=== PATIENT | female | born 2000 | race Caucasian/White ===

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

== ENCOUNTER 2019-05-13 05:41 | Observation (INO) ==
[2019-05-13 06:11] LABS: Basophils # (auto) 0.03 K/uL (0-0.2); Basophils % (auto) 0.2 %; Eosinophils # (auto) 0.16 K/uL (0-0.5); Hematocrit (blood only) 39.9 % (37-47); Hemoglobin 13.9 g/dL (12.0-16.0); Immature Granulocytes # (auto) 0.04 K/uL (0.00-0.02); Immature Granulocytes % (auto) 0.3 %; Lymphocytes # (auto) 2.53 K/uL (1.2-3.4); Mean Corpuscular Hemoglobin 31.2 pg (25-34); Mean Corpuscular Hgb Conc 34.8 g/dL (32-36); Mean Corpuscular Volume 89.7 fL (80-100); Mean Platelet Volume 9.3 fL (7.4-10.4); Monocytes # (auto) 1.18 K/uL (0.11-0.59); Monocytes % (auto) 7.5 %; Neutrophils # (auto) 11.86 K/uL (1.4-6.5); Platelet Count 279 K/uL (130-400); RDW Coefficient of Variation 11.6 % (11.5-14.5); Red Blood Count 4.45 M/uL (4.2-5.4)
--- NOTE | 2019-05-13 06:21 | Emergency Department Note ---
Entered by Jacklyn Jacobs acting as a scribe for Danny Carroll DO History of Present Illness General Chief complaint: Abdominal Pain Stated complaint: SEVERE ABDOMINAL PAIN,NAUSEA Time Seen by Provider: 05/13/19 06:08 History of Present Illness Onset (ago): day(s) 6 Location: abdomen Pain Consistency: + other (worsening ) Maximum Pain Intensity: 8 Quality: + other (abdominal pain ) Exacerbated By: + movement Associated symptoms: + nausea/vomiting (-vomiting) and + other (-diarrhea); no fever/chills The patient is a 18-year-old female who presented to the emergency department for an evaluation of abdominal pain. The patient has been having ongoing nominal pain for approximately 5 to 6 days. She remembers awaking with the pain last week the pain is slowly become steadier and worsen. The pain is worsened with any movement. She has tried qdxa-tec-sxsvxfs medications without relief. The patient was seen at [facility]. Reportedly she was diagnosed with constipation and was instructed to try hcsp-lxs-[id number] stool softeners. She is been trying ncul-gfn-kjayetm MiraLAX as well as other stool softeners without relief. She states that she has had a bowel movement. She is had no vomiting. She describes no diarrhea but does complain of nausea. She does not complain of fever. She does complain of some back pain but it does not appear to be on her flank and she reports no worsening pain from her baseline. The patient has not been seen by a provider since the original evaluation of [facility]. The patient has no sick contacts that she is aware of. Home Medications Home Medications Medication Instructions Recorded Confirmed Type Control Pills 1 tab PO DAILY 05/13/19 05/13/19 History Allergies Allergy/AdvReac Type Severity Reaction Status Date / Time No Known Allergies Allergy Unverified 05/13/19 06:08 Past Med/Surg History Medical History No significant past medical history Surgical History No significant past surgical history Family History Other No significant family history Social History Preferred Language: Kosovan marital status: Single current occupational status: student Feels Safe at Home: Yes Smoking Status: Never smoker Hx Alcohol Use: No Hx Substance Use: No Review of Systems See HPI for pertinent positives & negatives. and A total of 10 systems reviewed and were otherwise negative Physical Exam Vital Signs Vital Signs - 24 hr 05/13/19 05:45 05/13/19 06:51 05/13/19 07:53 Temperature 36.8 C Temperature Source Oral Sepsis Recent Fever Within 48 Hours No Sepsis New/Unexplained Change in Mental Status No Sepsis Action Taken by Nursing No Action Required Pulse Rate 95 H Pulse Rate [Finger] 90 94 H Pulse Rhythm [Finger] Pulse Strength [Finger] Respiratory Rate 18 16 18 Respiratory Effort / Characteristics Non-Labored Spontaneous Non-Labored Spontaneous Respiratory Depth Normal Normal Respiratory Pattern Blood Pressure 127/84 Blood Pressure [Left Arm] 100/65 105/77 Blood Pressure Mean 98 Blood Pressure Mean [Left Arm] 76 86 Blood Pressure Position [Left Arm] Pulse Oximetry 99 100 100 Oxygen Delivery Method Room Air Room Air 05/13/19 08:43 05/13/19 09:03 Temperature 36.4 C L Temperature Source Oral Sepsis Recent Fever Within 48 Hours Sepsis New/Unexplained Change in Mental Status Sepsis Action Taken by Nursing Pulse Rate 88 Pulse Rate [Finger] 96 H Pulse Rhythm [Finger] Regular Pulse Strength [Finger] Normal Respiratory Rate 18 20 Respiratory Effort / Characteristics Non-Labored Spontaneous Respiratory Depth Normal Respiratory Pattern Regular Blood Pressure 111/72 Blood Pressure [Left Arm] 119/84 Blood Pressure Mean Blood Pressure Mean [Left Arm] 95 Blood Pressure Position [Left Arm] Sitting Pulse Oximetry 100 100 Oxygen Delivery Method Room Air GENERAL: Patient is awake alert in no acute distress patient is resting comfortably and showing no signs of anxiety EYES: The conjunctivae are clear. The pupils are round and reactive. EARS, NOSE, MOUTH AND THROAT: The nose is without any evidence of any deformity. Mucous membranes are moist tongue is midline NECK: The neck is nontender and supple. RESPIRATORY: Normal respiratory effort is noted there is no evidence of wheezing rhonchi or rales CARDIOVASCULAR: Regular rate and rhythm noted there no murmurs rubs or gallops normal S1 normal S2 GASTROINTESTINAL: The abdomen is mildly distended but soft. There is tenderness in the right lower quadrant. Mild guarding is noted in the right lower quadrant as well as the suprapubic region. BACK: No midline tenderness or or step-off noted range of motion in flexion extension as well as rotation no signs of muscle spasm noted MUSCULOSKELETAL/EXTREMITIES: There is no evidence of gross deformity full range of motion is noted in the hips and shoulders SKIN: There is no obvious evidence of any rash. There are no petechiae, pallor or cyanosis noted. NEUROLOGIC: Patient is awake alert and oriented x3 strength is symmetric patellar reflexes are 2+ bilaterally Course 0615: Past medical records reviewed. The patient was evaluated in room B6. A complete history and physical exam was performed. 0705: I reevaluated and updated the patient on her case. 0708: I discussed the patient's case with Dr. Guillermo-Surgery. Dr. Guillermo recommends ultrasound to the right lower quadrant of the patient, and Dr. Guillermo states he will evaluate the patient, as well 0820: I discussed the patient's case with Emmanuelle Hall. The patient will be taken to the OR. . Consultations Consultation #1: I discussed the patient's case with Dr. Guillermo-Surgery. Dr. Guillermo recommends ultrasound to the right lower quadrant of the patient, and Dr. Guillermo states he will evaluate the patient, as well. Time: 07:08 Consultation #2: I discussed the patient's case with Emmanuelle aHll. The patient will be taken to the OR. Time: 08:20 Administered Medications Ioversol (Optiray 320 100ml) 93 ml IV ONCE PRN PRN Reason: Interaction Checking Stop: 05/17/19 06:40 Last Admin: 05/13/19 06:42 Dose: 93 ml Documented by: [id number] Discontinued Medications Sodium Chloride (Nss 1000ml) 1,000 mls @ 999 mls/hr IV .Q1H1M ONE Stop: 05/13/19 07:35 Last Infusion: 05/13/19 07:52 Dose: 0 mls/hr Documented by: [id number] Admin: 05/13/19 06:51 Dose: 999 mls/hr Documented by: [id number] Sodium Chloride (Nss 1000ml) 1,000 mls @ 999 mls/hr IV .Q1H1M ONE Stop: 05/13/19 09:07 Last Admin: 05/13/19 08:31 Dose: 999 mls/hr Documented by: [id number] Cefoxitin Sodium (Mefoxin) 1,000 mg in 50 mls @ 100 mls/hr IV NOW STA Stop: 05/13/19 08:36 Last Admin: 05/13/19 08:31 Dose: 100 mls/hr Documented by: [id number] Medical Decision Making Differential Diagnosis Etiologies such as appendicitis, diverticulitis, obstruction, inflammatory bowel disease, renal colic, PUD, biliary pathology, pancreatitis, mesenteric ischemia, aortic pathology, infections, genitourinary, UTI, perforated viscus, as well as others were entertained. Medical Records Attestation: I reviewed the patient's medical records. Home Medications Current Medication List: was personally reviewed by me Laboratory Data Attestation: I reviewed the patient's lab results. Result diagrams: 05/13/19 05:59 05/13/19 05:59 Lab Results 05/13/19 05/13/19 05/13/19 Range/Units 05:45 05:45 05:59 WBC 15.80 H (4.8-10.8) K/uL RBC 4.45 (4.2-5.4) M/uL Hgb 13.9 (12.0-16.0) g/dL Hct 39.9 (37-47) % MCV 89.7 (80-100) fL MCH 31.2 (25-34) pg MCHC 34.8 (32-36) g/dL RDW Std Deviation 38.0 (36.4-46.3) fL RDW Coeff of Snow 11.6 (11.5-14.5) % Plt Count 279 (130-400) K/uL MPV 9.3 (7.4-10.4) fL Immature Gran % (Auto) 0.3 % Neut % (Auto) 75.0 % Lymph % (Auto) 16.0 % Robertson % (Auto) 7.5 % Eos % (Auto) 1.0 % Baso % (Auto) 0.2 % Immature Gran # (Auto) 0.04 H (0.00-0.02) K/uL Neut # (Auto) 11.86 H (1.4-6.5) K/uL Lymph # (Auto) 2.53 (1.2-3.4) K/uL Robertson # (Auto) 1.18 H (0.11-0.59) K/uL Eos # (Auto) 0.16 (0-0.5) K/uL Baso # (Auto) 0.03 (0-0.2) K/uL Sodium (136-145) mmol/L Potassium (3.5-5.1) mmol/L Chloride (98-107) mmol/L Carbon Dioxide (21-32) mmol/L Anion Gap (3-11) BUN (7-18) mg/dl Creatinine (0.6-1.2) mg/dl Est Cr Clr Drug Dosing ml/min Est GFR ( Amer) Est GFR (Non-Af Amer) BUN/Creatinine Ratio (10-20) Glucose (70-99) mg/dl Calcium (8.5-10.1) mg/dl Total Bilirubin (0.2-1) mg/dl AST (15-37) U/L ALT (12-78) U/L Alkaline Phosphatase (45-117) U/L Total Protein (6.4-8.2) gm/dl Albumin (3.4-5.0) gm/dl Globulin (2.5-4.0) gm/dl Albumin/Globulin Ratio (0.9-2) Lipase (73-393) U/L Urine Color Yellow Urine Appearance Clear (Clear) Urine pH 6.0 (4.5-7.5) Ur Specific [place] 1.021 (1.000-1.030) Urine Protein Negative (Negative) Urine Glucose (UA) Negative (Negative) Urine Ketones Negative (Negative) Urine Blood Trace H (Negative) Urine Nitrite Negative (Negative) Urine Bilirubin Negative (Negative) Urine Urobilinogen Negative (Negative) Ur Leukocyte Esterase Negative (Negative) Urine WBC (Auto) 1-5 (0-5) /hpf Urine RBC (Auto) 0-4 (0-4) /hpf U Hyaline Cast (Auto) 0 (0-5) /lpf U Epithel Cells (Auto) >30 H (0-5) /lpf Urine Bacteria (Auto) Negative (Negative) POC Ur Test NEG (NEG) 05/13/19 Range/Units 05:59 WBC (4.8-10.8) K/uL RBC (4.2-5.4) M/uL Hgb (12.0-16.0) g/dL Hct (37-47) % MCV (80-100) fL MCH (25-34) pg MCHC (32-36) g/dL RDW Std Deviation (36.4-46.3) fL RDW Coeff of Snow (11.5-14.5) % Plt Count (130-400) K/uL MPV (7.4-10.4) fL Immature Gran % (Auto) % Neut % (Auto) % Lymph % (Auto) % Robertson % (Auto) % Eos % (Auto) % Baso % (Auto) % Immature Gran # (Auto) (0.00-0.02) K/uL Neut # (Auto) (1.4-6.5) K/uL Lymph # (Auto) (1.2-3.4) K/uL Robertson # (Auto) (0.11-0.59) K/uL Eos # (Auto) (0-0.5) K/uL Baso # (Auto) (0-0.2) K/uL Sodium 137 (136-145) mmol/L Potassium 3.6 (3.5-5.1) mmol/L Chloride 102 (98-107) mmol/L Carbon Dioxide 28 (21-32) mmol/L Anion Gap 7.0 (3-11) BUN 11 (7-18) mg/dl Creatinine 0.85 (0.6-1.2) mg/dl Est Cr Clr Drug Dosing 95.0 ml/min Est GFR ( Amer) 114.3 Est GFR (Non-Af Amer) 98.6 BUN/Creatinine Ratio 13.3 (10-20) Glucose 99 (70-99) mg/dl Calcium 9.5 (8.5-10.1) mg/dl Total Bilirubin 0.5 (0.2-1) mg/dl AST 15 (15-37) U/L ALT 19 (12-78) U/L Alkaline Phosphatase 62 (45-117) U/L Total Protein 8.0 (6.4-8.2) gm/dl Albumin 4.0 (3.4-5.0) gm/dl Globulin 4.0 (2.5-4.0) gm/dl Albumin/Globulin Ratio 1.0 (0.9-2) Lipase 148 (73-393) U/L Urine Color Urine Appearance (Clear) Urine pH (4.5-7.5) Ur Specific [place] (1.000-1.030) Urine Protein (Negative) Urine Glucose (UA) (Negative) Urine Ketones (Negative) Urine Blood (Negative) Urine Nitrite (Negative) Urine Bilirubin (Negative) Urine Urobilinogen (Negative) Ur Leukocyte Esterase (Negative) Urine WBC (Auto) (0-5) /hpf Urine RBC (Auto) (0-4) /hpf U Hyaline Cast (Auto) (0-5) /lpf U Epithel Cells (Auto) (0-5) /lpf Urine Bacteria (Auto) (Negative) POC Ur Test (NEG) Imaging Data Radiologist's Impression: Radiology results as stated below per my review and the radiologist's interpretation: CT abd pelvis IV con only CLINICAL HISTORY: RLQ pain COMPARISON STUDY: None. TECHNIQUE: The patient was scanned in a dynamic helical fashion during intravenous administration of 93 cc of Optiray 320. A dose lowering technique was utilized adhering to the principles of ALARA. CT DOSE: 313.01 mGycm FINDINGS: Lower chest: There are minor right basilar atelectatic changes Liver: The contrast-enhanced liver is normal in size, contour, and attenuation. There is no intrahepatic biliary ductal dilatation. The hepatic veins and portal veins are patent. Gallbladder: Unremarkable. Spleen: Normal in size and attenuation. Pancreas: Unremarkable. Adrenal glands: Unremarkable. Kidneys: There is symmetric renal cortical enhancement. The kidneys are normal in size without hydronephrosis. Bowel: There are no transition zones to indicate bowel obstruction. There is no evidence of acute diverticulitis. There is a low-lying cecum. There is a mildly dilated fluid-filled appendix versus distal ileal bowel loop. Differentiation is is difficult on this study performed without the benefit of oral contrast. If there is clinical concern over the presence of acute appendicitis. This examination should be repeated with both intravenous and oral contrast. Peritoneum: There is no intraperitoneal free air or abdominal ascites. Vasculature: The abdominal aorta is normal in course and caliber. Adenopathy: None. Pelvic viscera: There is an indwelling vaginal ring. Skeletal structures: No destructive osseous lesions are seen. IMPRESSION: 1. No evidence of bowel obstruction. No evidence of free air 2. Mildly dilated fluid-filled appendix versus distal ileal bowel loop. If there is clinical concern over the presence of acute appendicitis, this examination should be repeated with both intravenous and oral contrast. Electronically signed by: Vargas Jurado M.D. 05/13/2019 6:59 AM US appendix CLINICAL HISTORY: Right lower quadrant abdominal pain COMPARISON STUDY: CT scan dated 05/13/2019 FINDINGS: The appendix was not visualized. The study is therefore nondiagnostic in regards to acute appendicitis. There is minimal free pelvic fluid in the right lower quadrant. Unremarkable right lower quadrant lymph node was delinea valerio IMPRESSION: Nonvisualization of the appendix. This study is therefore nondiagnostic in regards to acute appendicitis Electronically signed by: Vargas Jurado M.D. 05/13/2019 7:55 AM Blood Pressure Blood Pressure Findings: Normal blood pressure MDM Narrative The patient is a 18-year-old female who presented to the emergency department for an evaluation of abdominal pain. The patient appeared to have abdominal pain which was ongoing for the last few days. Pain continues to worsen. She was seen initially at an urgent care center and was felt to be suffering from constipation. She was taking nzzq-cpr-tbpzaod medication for pain as well as constipation without relief of her symptoms. The patient's physical exam appears to be consistent with appendicitis. She also has an elevated white blood cell count. CT the abdomen and pelvis was obtained and did show signs of possible dilated appendix. It was not completely clear so surgical consultation was undertaken. I discussed this case with the on-call general surgeon. They did recommend an ultrasound but the ultrasound was nonconclusive. Given the patient's presentation she was evaluated by the general surgical group. She was felt to have consistent pain in his story which was worrisome for appendicitis so the best course of action was felt to be an appendectomy. The patient was treated with IV fluids and IV antibiotics. She was reevaluated multiple times. On subsequent reevaluation she was minimally improved. The patient was agreeable to the plan. Impression & Plan Acute appendicitis, Abdominal pain, right lower quadrant Discharge Plan Visit Data *Final* Discharge Date/Time: 05/13/19 08:43 Chief Complaint: Abdominal Pain Stated Complaint: SEVERE ABDOMINAL PAIN,NAUSEA ED Provider: Danny Carroll Discharge Problem: Acute appendicitis, Abdominal pain, right lower quadrant Patient Disposition: Still a Patient Discharge Instructions Interventions: ED Discharge Assessment Last Done: 05/13/19 08:43 Discharge Problem: Acute appendicitis Qualifiers: Acute appendicitis type: unspecified acute appendicitis type Qualified Code(s): K35.80 - Unspecified acute appendicitis The scribe's documentation has been prepared under my direction and personally reviewed by me in its entirety. I confirm that the note above accurately reflects all work, treatment, procedures, and medical decision making performed by me.
[2019-05-13 06:26] LABS: BUN Creatinine Ratio 13.3 (10-20); Calcium 9.5 mg/dl (8.5-10.1); Est GFR (African American) 114.3; Est GFR (Non-African American) 98.6; Potassium 3.6 mmol/L (3.5-5.1)
[2019-05-13 06:28] LABS: Appearance Urine Clear (Clear); Bacteria Urine Automated Negative (Negative); Bilirubin Urine Negative (Negative); Blood Urine Trace (Negative); Cast Urine Automated 0 /lpf (0-5); Color Urine Yellow; Epithelial Cell Urine Auto >30 /lpf (0-5); Glucose Urine UA Negative (Negative); Ketones Urine Negative (Negative); Leukocyte Esterase Urine Negative (Negative); Nitrite Urine Negative (Negative); Protein Urine Negative (Negative); RBC Urine Automated 0-4 /hpf (0-4); Specific Gravity Urine 1.021 (1.000-1.030); Urobilinogen Urine Negative (Negative)
[2019-05-13 06:29] LABS: Bilirubin,Total 0.5 mg/dl (0.2-1)
[2019-05-13] MEDS ORDERED: SODIUM CHLORIDE 0.9% 1000ML 1,000 ML IV ONE ×2 (06:35→08:07)
[2019-05-13] MEDS ORDERED: IOVERSOL 100ml IV PRN (06:41)
--- NOTE | 2019-05-13 07:00 | CT Scan Report ---
CT abd pelvis IV con only CLINICAL HISTORY: RLQ pain COMPARISON STUDY: None. TECHNIQUE: The patient was scanned in a dynamic helical fashion during intravenous administration of 93 cc of Optiray 320. A dose lowering technique was utilized adhering to the principles of ALARA. CT DOSE: 313.01 mGycm FINDINGS: Lower chest: There are minor right basilar atelectatic changes Liver: The contrast-enhanced liver is normal in size, contour, and attenuation. There is no intrahepa tic biliary ductal dilatation. The hepatic veins and portal veins are patent. Gallbladder: Unremarkable. Spleen: Normal in size and attenuation. Pancreas: Unremarkable. Adrenal glands: Unremarkable. Kidneys: There is symmetric renal cortical enhancement. The kidneys are normal in size without hydron ephrosis. Bowel: There are no transition zones to indicate bowel obstruction. There is no evidence of acute div erticulitis. There is a low-lying cecum. There is a mildly dilated fluid-filled appendix versus dista l ileal bowel loop. Differentiation is is difficult on this study performed without the benefit of or al contrast. If there is clinical concern over the presence of acute appendicitis. This examination s hould be repeated with both intravenous and oral contrast. Peritoneum: There is no intraperitoneal free air or abdominal ascites. Vasculature: The abdominal aorta is normal in course and caliber. Adenopathy: None. Pelvic viscera: There is an indwelling vaginal ring. Skeletal structures: No destructive osseous lesions are seen. IMPRESSION: 1. No evidence of bowel obstruction. No evidence of free air 2. Mildly dilated fluid-filled appendix versus distal ileal bowel loop. If there is clinical concern over the presence of acute appendicitis, this examination should be repeated with both intravenous an d oral contrast. Electronically signed by: Vargas Jurado M.D. 05/13/2019 6:59 AM
--- NOTE | 2019-05-13 07:53 | History & Physical Report ---
Date of Service May 13, 2019 Assessment & Plan (1) Acute appendicitis: This is a 18y F with a history of IBS who presents to the [facility] ED on 05/13/19 with complaints of severe lower abdominal pain + nausea. Workup in the ED revealed a WBC of [address] scan findings equivocal for acute appendicitis. On exam patient is tender in the lower abdomen, worse on the right side. After discussion with patient and Dr. Guillermo we will plan to proceed with surgical intervention and book patient for a laparoscopic appendectomy. Plan to keep patient NPO with IVF and start IV abx. We will talk to the OR schedulers and plan to take her this AM. as above. exam c/w appendicitis. discussed options/risks ( bleeding/infection/dvt/pe/leaks/injury to another organ/etc...) questions answered. will proceed with gilbert appshaye/jaison jessica. History of Present Illness Primary Care Provider: NO PCP This is a 18y F with a PMH of IBS who presents to the [facility] ED on 05/13/19 with complaints of abdominal pain starting this AM. Patient reports that she initially had an episode of abdominal pain and nausea this past Saturday prompting her to be evaluated at an urgent care where they took an x-ray and diagnosed her with constipation. She then took Miralax for 5 days thereafter and was having regular bowel movements and her pain went away. Then this AM she developed severe pain again to the point where she couldn't sleep and came to the ER. She describes the pain as 8/10 in severity, located in the lower abdomen, but worse stabbing-like pains on the right. She says it "feels like there is a poison in my stomach." Patient endorses some chills and hot flashes, and denies emesis, diarrhea, chest pain, shortness of breath. She last ate yesterday at 9pm and her last bowel movement was yesterday. In the ED patient's WBC elevated to [address] a/p revealed a mildly dilated fluid filled appendix vs distal ileal bowel loop, with signs concerning for acute appendicitis. A pelvis US was obtained thereafter showing nonvisualization of the appendix. Surgery was consulted thereafter for further evaluation. Allergies Allergy/AdvReac Type Severity Reaction Status Date / Time No Known Allergies Allergy Unverified 05/13/19 06:08 Home Medications Home Medications Medication Instructions Recorded Confirmed Type Control Pills 1 tab PO DAILY 05/13/19 05/13/19 History Past Med/Surg History Medical History No significant past medical history Surgical History No significant past surgical history Family History Other No significant family history Social History Preferred Language: Amharic marital status: Single current occupational status: student Feels Safe at Home: Yes Smoking Status: Never smoker Hx Alcohol Use: No Hx Substance Use: No Review of Systems Constitutional: + chills hot flashes Respiratory: no shortness of breath Cardiovascular: no chest pain Gastrointestinal: + abdominal pain (lower abdominal region, worse on the right side) and + nausea; no vomiting Genitourinary: no dysuria and no difficulty urinating Physical Exam Physical Exam: awake/alert Constitutional: well developed and well nourished; no acute distress Respiratory: normal respiratory effort; no respiratory distress Cardiovascular: Rate/Rhythm: regular rate Gastrointestinal (Abdomen): Inspection/Auscultation: abdomen not distended Percussion/Palpation: + abdomen tender (in lower abdomen, pain worse to palpation on the right) and abdomen soft Results & Data Vital Signs (Past 12 Hours) Vital Signs Temp Pulse Pulse Resp BP BP Pulse Ox 05/13/19 06:51 90 16 100/65 100 05/13/19 05:45 36.8 C 95 H 18 127/[address] abd pelvis IV con only CLINICAL HISTORY: RLQ pain COMPARISON STUDY: None. TECHNIQUE: The patient was scanned in a dynamic helical fashion during intravenous administration of 93 cc of Optiray 320. A dose lowering technique was utilized adhering to the principles of ALARA. CT DOSE: 313.01 mGycm FINDINGS: Lower chest: There are minor right basilar atelectatic changes Liver: The contrast-enhanced liver is normal in size, contour, and attenuation. There is no intrahepatic biliary ductal dilatation. The hepatic veins and portal veins are patent. Gallbladder: Unremarkable. Spleen: Normal in size and attenuation. Pancreas: Unremarkable. Adrenal glands: Unremarkable. Kidneys: There is symmetric renal cortical enhancement. The kidneys are normal in size without hydronephrosis. Bowel: There are no transition zones to indicate bowel obstruction. There is no evidence of acute diverticulitis. There is a low-lying cecum. There is a mildly dilated fluid-filled appendix versus distal ileal bowel loop. Differentiation is is difficult on this study performed without the benefit of oral contrast. If there is clinical concern over the presence of acute appendicitis. This examination should be repeated with both intravenous and oral contrast. Peritoneum: There is no intraperitoneal free air or abdominal ascites. Vasculature: The abdominal aorta is normal in course and caliber. Adenopathy: None. Pelvic viscera: There is an indwelling vaginal ring. Skeletal structures: No destructive osseous lesions are seen. IMPRESSION: 1. No evidence of bowel obstruction. No evidence of free air 2. Mildly dilated fluid-filled appendix versus distal ileal bowel loop. If there is clinical concern over the presence of acute appendicitis, this examination should be repeated with both intravenous and oral contrast. Electronically signed by: Vargas Jurado M.D. 05/13/2019 6:59 AM US appendix CLINICAL HISTORY: Right lower quadrant abdominal pain COMPARISON STUDY: CT scan dated 05/13/2019 FINDINGS: The appendix was not visualized. The study is therefore nondiagnostic in regards to acute appendicitis. There is minimal free pelvic fluid in the right lower quadrant. Unremarkable right lower quadrant lymph node was delineated IMPRESSION: Nonvisualization of the appendix. This study is therefore nondiagnostic in regards to acute appendicitis Electronically signed by: Vargas Jurado M.D. 05/13/2019 7:55 AM Dictated: 05/13/19 0754 Transcribed: 05/13/19 0754 PG Care Time/CCT Total # of Minutes Spent Total Time Spent with Patient: Total time spent is greater than 50% in coordination of care (as documented) at patient's floor/unit and/or counseling patient:
--- NOTE | 2019-05-13 07:56 | Ultrasound Report ---
US appendix CLINICAL HISTORY: Right lower quadrant abdominal pain COMPARISON STUDY: CT scan dated 05/13/2019 FINDINGS: The appendix was not visualized. The study is therefore nondiagnostic in regards to acute a ppendicitis. There is minimal free pelvic fluid in the right lower quadrant. Unremarkable right lower quadrant lymph node was delineated IMPRESSION: Nonvisualization of the appendix. This study is therefore nondiagnostic in regards to ac [place] appendicitis Electronically signed by: Vargas Jurado M.D. 05/13/2019 7:55 AM
[2019-05-13] MEDS ORDERED: cefOXitin 1,000 MG/50 ML BAG IV STA (08:07)
[2019-05-13] MEDS ORDERED: MIDAZOLAM HCL 1 MG/ML 2ML VIAL ONE (09:08)
[2019-05-13] MEDS ORDERED: fentaNYL citrate 100 MCG/2 ML VIAL ONE (09:08)
[2019-05-13] MEDS ORDERED: BUPIVACAINE/EPINEPHRINE 0.5% MPF 1:200,000 30 ML VIAL ONE (09:13)
--- NOTE | 2019-05-13 09:55 | Anesthesiology Consultation ---
Date of Service May 13, 2019 Assessment & Plan (1) Encounter for pre-operative examination: Chart Review Chart Review: Acceptable Risk for Surgery History Surgery Operation Date: 05/13/19 08:10 Proposed Procedures p Laparoscopic Appendectomy - Daren Guillermo, Height/Weight Height: 5 ft 5 in Weight: 64.6 kg Allergies Allergy/AdvReac Type Severity Reaction Status Date / Time No Known Allergies Allergy Unverified 05/13/19 06:08 Medications Home Medications Medication Instructions Recorded Confirmed Last Taken Control Pills 1 tab PO DAILY 05/13/19 05/13/19 Unknown Active Medications Generic Name Dose Route Start Last Admin Trade Name Freq PRN Reason Stop Dose Admin Ioversol 93 ml 05/13/19 06:41 05/13/19 06:42 Optiray 320 100ml IV 05/17/19 06:40 93 ml ONCE PRN Administration Interaction Checking NPO Date Last Intake of Fluids: 05/13/19 Time Last Intake of Fluids: 04:00 Date Last Intake of Solids: 05/12/19 Time Last Intake of Solids: 21:00 Past Medical History Medical History No significant past medical history Past Family History Family History Other No significant family history Past Surgical History Surgical History No significant past surgical history Social History Smoking Status: Never smoker Hx Alcohol Use: No Hx Substance Use: No Physical Exam Vital Signs Last Vital Signs Temp 36.4 C L 05/13/19 09:03 Pulse 96 H 05/13/19 09:03 Resp 20 05/13/19 09:03 BP 119/84 05/13/19 09:03 Pulse Ox 100 05/13/19 09:03 Testing Laboratory Results 05/13/19 05:59 05/13/19 05:59 Urine Color Yellow 05/13/19 05:45 Urine Appearance Clear (Clear) 05/13/19 05:45 Urine pH 6.0 (4.5-7.5) 05/13/19 05:45 Ur Specific [place] 1.021 (1.000-1.030) 05/13/19 05:45 Urine Protein Negative (Negative) 05/13/19 05:45 Urine Glucose (UA) Negative (Negative) 05/13/19 05:45 Urine Ketones Negative (Negative) 05/13/19 05:45 Urine Nitrite Negative (Negative) 05/13/19 05:45 Ur Leukocyte Esterase Negative (Negative) 05/13/19 05:45 Urine WBC (Auto) 1-5 /hpf (0-5) 05/13/19 05:45 Urine RBC (Auto) 0-4 /hpf (0-4) 05/13/19 05:45 U Hyaline Cast (Auto) 0 /lpf (0-5) 05/13/19 05:45 U Epithel Cells (Auto) >30 /lpf (0-5) H 05/13/19 05:45 Urine Bacteria (Auto) Negative (Negative) 05/13/19 05:45 05/13/19 05:45 POC Ur Test NEG
[2019-05-13] MEDS ORDERED: NEOSTIGMINE METHYLSULFATE 5 MG/5 ML SYR ONE (10:28)
[2019-05-13] MEDS ORDERED: LIDOCAINE HCL 2% 2 ML VIAL/AMP(20MG/ML) INFIL ONE (10:28)
[2019-05-13] MEDS ORDERED: GLYCOPYRROLATE 0.2 MG/ML VIAL ONE (10:28)
[2019-05-13] MEDS ORDERED: CEFAZOLIN 250 MG/ML 1 GM VIAL ONE (10:28)
[2019-05-13] MEDS ORDERED: ONDANSETRON INJ 2 MG/ML 2 ML VIAL ONE (10:28)
[2019-05-13] MEDS ORDERED: DEXAMETHASONE SOD INJ 4 MG/ML VIAL ONE (10:28)
[2019-05-13] MEDS ORDERED: PROPOFOL IV EMULSION 10 MG/ML 20 ML VIAL IV ONE (10:28)
[2019-05-13] MEDS ORDERED: KETOROLAC 30 MG/ML VIAL ONE (10:48)
[2019-05-13] MEDS ORDERED: ROCURONIUM BROMIDE 10 MG/ML 5 ML VIAL ONE (10:49)
--- NOTE | 2019-05-13 11:06 | Operative Report ---
PG Post Operative Report Pre & Post Diagnosis Operation Date: 05/13/19 08:10 Pre-Op Diagnosis: Acute Appendicitis Post-Op Diagnosis: Acute Appendicitis Procedure Operation Date: 05/13/19 08:10 Actual Procedures p Laparoscopic Appendectomy(Not Applicable) - Daren Guillermo DO Surgeon Daren Guillermo DO Acetaldehyde Converter Operator haven Andrade Estimated Blood Loss 5 Findings Consistent with Post-Op Diagnosis Specimens appendix Description of Procedure After informed consent was obtained the patient was taken to the operating room and placed in supine position. After successful intubation a Villalba catheter was placed and the left arm was tucked. I began by making a periumbilical incision with an 11 blade scalpel and carried this down through the soft tissue using electrocautery. The anterior rectus fascia was opened using electrocautery and 2 #0 Vicryl stay sutures were placed. The peritoneum was elevated using hemostats and incised under direct vision using a Metzenbaum scissor. A finger sweep was performed. A 12 mm Frederick trocar was placed and the abdomen was insufflated to 18 mmHg. A laparoscope was inserted and the abdomen was examined in 360. A suprapubic 5 mm port and a left lower quadrant 12 mm port were placed under direct vision. The patient was air planed to the left as well as placed in a slight Trendelenburg position. We began by looking in the right lower quadrant. We were able to readily identify the appendix and it was grossly inflamed. It had not perforated. There is a small amount of purulent fluid in the right lower quadrant and the pelvis. We immediately irrigated and suctioned this out. I was able to use primarily blunt dissection to pull the appendix away from the right lower quadrant sidewall. I was able to make a window in the mesentery of the appendix. I used a ELIZ brown 60 mm stapler to transect it at its base. I then used a second brown ELIZ stapler to transect the mesentery. The appendix was then placed into an Endo Catch bag and removed from the camera port site. We thoroughly irrigated the right lower quadrant as well as the pelvis. There was adequate hemostasis. I ran the small bowel backwards from the terminal ileum for about 6 feet all of which was normal. All the peritoneal surfaces were normal. Small/ large bowel, liver, stomach etc. all appeared grossly normal. We did a final irrigation and then removed all the trochars and desufflated the abdomen. The fascia of the camera port as well as the left lower quadrant were closed using 0 Vicryl in [id number] fashion. Wounds were all irrigated and closed using 4-0 Monocryl. Marcaine was injected around them for postoperative analgesia and skin glue used as a dressing. The patient was awakened extubated and transferred to recovery in stable condition. My physician's personal assistant was present through the entire case. She assisted with prepping the patient and helped with exposure for port placement, helped run the camera and helped with fascial/wound closure at the end of the procedure as well as dressing placement. I attest to the content of the Intraoperative Record and any orders documented therein. Any exceptions are noted below. I attest to the content of the Intraoperative Record and any orders documented therein. Any exceptions are noted below.
[2019-05-13] MEDS ORDERED: HYDROmorphone INJ 1 MG/ML SYRINGE ONE (11:14)
[2019-05-13] MEDS ORDERED: PROMETHAZINE HCL 6.25 MG in SODIUM CHLORIDE 0.9% 50 ML IV STA (11:19)
[2019-05-13] MEDS ORDERED: ATROPINE SULFATE 0.1 MG/ML 10ML SYR IV PRN (11:20)
[2019-05-13] MEDS ORDERED: ONDANSETRON INJ 2 MG/ML 2 ML VIAL IV PRN ×2 (11:20→12:58)
[2019-05-13] MEDS ORDERED: PROMETHAZINE HCL 6.25 MG in SODIUM CHLORIDE 0.9% 50 ML IV PRN (11:20)
[2019-05-13] MEDS: HYDROmorphone INJ 1 MG/ML SYRINGE IV PRN ×4 (11:22→11:45)
--- NOTE | 2019-05-13 11:41 | Anesthesiology Progress Note ---
Date of Service May 13, 2019 Anesthesia Post Procedure Vital Signs Vital Signs: Temp Pulse Pulse Pulse Resp BP BP 05/13/19 11:07 36.6 C 100 H 16 120/73 05/13/19 09:03 36.4 C L 96 H 20 119/84 05/13/19 08:43 88 18 111/72 05/13/19 07:53 94 H 18 105/77 05/13/19 06:51 90 16 100/65 05/13/19 05:45 36.8 C 95 H 18 127/84 Pulse Ox 05/13/19 11:07 100 05/13/19 09:03 100 05/13/19 08:43 100 05/13/19 07:53 100 05/13/19 06:51 100 05/13/19 05:45 99 Pain Intensity Abdomen: Pain Intensity: 7 Transfer of Care Handoff Completed per policy Notes Mental Status: alert / awake / arousable Patient Amnestic to Procedure: Yes Nausea / Vomiting: adequately controlled Pain: adequately controlled Airway Patency, RR, SpO2: stable & adequate BP & HR: stable & adequate Hydration State: stable & adequate Anesthetic Complications: no major complications apparent
[2019-05-13] MEDS ORDERED: MoRPHine SULFATE 4 MG/ML 1 ML CARP\\VIAL IV PRN (12:58)
[2019-05-13] MEDS ORDERED: MoRPHine SULFATE 2 MG/ML CARP IV PRN (12:58)
[2019-05-13] MEDS ORDERED: HYDROCODONE/ACETAMOPHEN 5/325MG TAB PO PRN ×2 (12:58)
[2019-05-13] MEDS: LACTATED RINGER'S 1,000 ML IV SCH (13:26)
[2019-05-13] MEDS ORDERED: IBUPROFEN 200 MG TAB PO PRN (16:54)
[2019-05-13] MEDS: ACETAMINOPHEN 325 MG TAB PO PRN (20:53)
[2019-05-14] MEDS: ACETAMINOPHEN 325 MG TAB PO PRN (03:34)
[2019-05-14] MEDS: LACTATED RINGER'S 1,000 ML IV SCH (03:34)
--- NOTE | 2019-05-14 08:53 | Anesthesiology Progress Note ---
Date of Service May 14, 2019 Anesthesia Post Procedure Vital Signs Vital Signs: Temp Pulse Pulse Pulse Resp BP BP 05/14/19 08:35 37.0 C 89 80 15 99/60 L 05/14/19 07:00 37.0 C 80 15 99/60 L 05/14/19 03:10 36.8 C 87 16 102/62 05/13/19 23:00 37.5 C 92 H 16 97/55 L 05/13/19 19:47 36.9 C 101 H 18 110/58 L 05/13/19 15:44 36.7 C 89 16 100/64 05/13/19 14:35 89 16 107/66 05/13/19 13:35 112 H 16 101/65 05/13/19 13:07 112 H 16 97/60 L 05/13/19 12:35 37.5 C 104 H 16 117/70 05/13/19 12:20 36.6 C 101 H 15 106/59 L 05/13/19 12:15 97 H 15 96/57 L 05/13/19 12:10 95 H 11 L 100/59 L 05/13/19 12:05 105 H 17 05/13/19 12:00 97 H 17 103/59 L 05/13/19 11:55 98 H 17 127/73 05/13/19 11:52 37.4 C 05/13/19 11:50 98 H 19 121/73 05/13/19 11:45 96 H 18 122/75 05/13/19 11:40 90 20 109/64 05/13/19 11:35 90 18 122/75 05/13/19 11:30 83 27 H 120/72 05/13/19 11:25 83 18 112/71 05/13/19 11:20 82 23 112/72 05/13/19 11:15 83 23 113/79 05/13/19 11:11 96 H 20 128/54 L 05/13/19 11:10 98 H 20 05/13/19 11:07 36.6 C 102 H 100 H 19 120/73 120/73 05/13/19 09:03 36.4 C L 96 H 20 119/84 Pulse Ox 05/14/19 08:35 98 05/14/19 07:00 98 05/14/19 03:10 100 05/13/19 23:00 97 05/13/19 19:47 97 05/13/19 15:44 99 05/13/19 14:35 98 05/13/19 13:35 98 05/13/19 13:07 99 05/13/19 12:35 95 05/13/19 12:20 100 05/13/19 12:15 100 05/13/19 12:10 100 05/13/19 12:05 100 05/13/19 12:00 100 05/13/19 11:55 100 05/13/19 11:52 100 05/13/19 11:50 100 05/13/19 11:45 100 05/13/19 11:40 100 05/13/19 11:35 100 05/13/19 11:30 100 05/13/19 11:25 100 05/13/19 11:20 100 05/13/19 11:15 100 05/13/19 11:11 100 05/13/19 11:10 100 05/13/19 11:07 100 05/13/19 09:03 100 Pain Intensity Abdomen: Pain Intensity: 5 Notes Mental Status: alert / awake / arousable and participated in evaluation Patient Amnestic to Procedure: Yes Nausea / Vomiting: adequately controlled Pain: adequately controlled Airway Patency, RR, SpO2: stable & adequate BP & HR: stable & adequate Hydration State: stable & adequate Anesthetic Complications: no major complications apparent and Pt Satisfied with anesthetic care
--- NOTE | 2019-05-14 10:03 | Surgery Progress Note ---
Date of Service May 14, 2019 Assessment & Plan (1) Acute appendicitis: pod 1 doing well ok for d/c instructions given. Subjective pt feeling much better this am. no new complaints. wants to go home Physical Exam Physical Exam: alert. oriented. nad abd: soft. expected tenderness. wounds look good. Results & Data Vital Signs (Past 12 Hours) Vital Signs Temp Pulse Pulse Resp BP Pulse Ox 05/14/19 08:35 37.0 C 89 80 15 99/60 L 98 05/14/19 07:00 37.0 C 80 15 99/60 L 98 05/14/19 03:10 36.8 C 87 16 102/62 100 05/13/19 23:00 37.5 C 92 H 16 97/55 L 97 PG Care Time/CCT Total # of Minutes Spent Total Time Spent with Patient: Total time spent is greater than 50% in coordination of care (as documented) at patient's floor/unit and/or counseling patient: (1) Acute appendicitis Acute appendicitis type: unspecified acute appendicitis type Qualified Code(s): K35.80 - Unspecified acute appendicitis
--- NOTE | 2019-05-18 07:32 | Discharge Summary ---
Date of Service May 18, 2019 Admission HPI Per Admitting Provider This is a 18y F with a PMH of IBS who presents to the [facility] ED on 05/13/19 with complaints of abdominal pain starting this AM. Patient reports that she initially had an episode of abdominal pain and nausea this past Saturday prompting her to be evaluated at an urgent care where they took an x-ray and diagnosed her with constipation. She then took Miralax for 5 days thereafter and was having regular bowel movements and her pain went away. Then this AM she developed severe pain again to the point where she couldn't sleep and came to the ER. She describes the pain as 8/10 in severity, located in the lower abdomen, but worse stabbing-like pains on the right. She says it "feels like there is a poison in my stomach." Patient endorses some chills and hot flashes, and denies emesis, diarrhea, chest pain, shortness of breath. She last ate yesterday at 9pm and her last bowel movement was yesterday. In the ED patient's WBC elevated to [address] a/p revealed a mildly dilated fluid filled appendix vs distal ileal bowel loop, with signs concerning for acute appendicitis. A pelvis US was obtained thereafter showing nonvisualization of the appendix. Surgery was consulted thereafter for further evaluation. Principal Diagnosis acute appendicitis Discharge Exam awake/alert Respiratory normal respiratory effort Gastrointestinal (Abdomen) Inspection/Auscultation: + abdominal surgical incision (surgical incisions intact with dermabond overtop); abdomen not distended Percussion/Palpation: abdomen soft Discharge Data Allergies Allergy/AdvReac Type Severity Reaction Status Date / Time No Known Allergies Allergy Unverified 05/13/19 06:08 Procedures Performed Operation Date: 05/13/19 08:10 Actual Procedures p Laparoscopic Appendectomy(Not Applicable) - Daren Guillermo, Ordered Studies 05/13/19 06:15 CT abd pelvis IV con only Stat 05/13/19 07:09 US appendix Stat Hospital Course (1) Acute appendicitis: This is a 18yF who presented to the [facility] ED on 05/13/19 with complaints of abdominal pain and nausea. Workup in the ED revealed a WBC of 15.[address] a/p with findings equivocal for acute appendicitis. Patient's symptoms and exam consistent with appendicitis. Patient was made NPO with IVF and abx. Decision was made to take the patient to the OR for a laparoscopic appendectomy with Dr. Guillermo. The patient tolerated the procedure well, see operative report for full details. The patient recovered in the PACU and was sent to the observation unit for ongoing care. Her diet was advanced to regular as tolerated, pain managed with oral medications, she was voiding spontaneously, ambulating the halls, and incisions intact with dermabond overtop. On POD#1 (05/14/19) the patient was deemed stable for discharge to home. She was instructed to follow up in clinic within 1-2 weeks for a post op check. Total Time Total Time Spent Total Time Spent (In Minutes): 15 Discharge Plan Discharge Items Patient Disposition: Home - Self-Care Reason For Visit: SEVERE ABDOMINAL PAIN,NAUSEA Discharge Diagnosis: acute appendicitis Activity: Per Instructions section Lifting: No more than 10 pounds Bathing Comment: you may shower starting tomorrow-05/14/19 Exercise/Sports: Wait until after follow-up appointment Exercise Comment: light activity for 3 weeks Driving/Machine Use: do not resume driving while taking narcotics for pain Non-emergency contact: Surgeon Call non-emergency contact if: you have any medication questions, your symptoms worsen, your pain is worsening, you have a fever, your temperature is above 101 .5, your wound has increased redness, your wound has increased drainage and your wound pain has increased Follow-up/Referrals: Daren Guillermo, DO [Surgeon] - (Please call the clinic to schedule post operative follow up in 1-2 weeks. You may call the office sooner if you have any questions/concerns.) PCP,NO [Primary Care Provider] - Diet: Regular Addtl Attending Provider Instructions: Pending Studies at Discharge: No Stand-Alone Forms: [facility], Opioid Pain Management, Work/School Release (Inpt) Medications and DC Order Prescriptions: New hydrocodone-acetaminophen [[place]] 5-325 mg tablet 1 - 2 tab PO .every 4-6 hours PRN (Reason: pain, for initial therapy.) Qty: 15 RF: 0 Continued Control Pills 1 tab PO DAILY RF: 0 Discharge Orders: Discharge Order (Routine); Ordered 05/14/19 Ordered By: Mata Lee Jr Admission Data Admit Date/Time: 05/13/19 11:05 Attending Provider: Daren Guillermo Admit Provider: Daren Guillermo Primary Care Provider: PCP,NO Other Interventions: Discharge Summary Assessment (RN) Last Done: 05/14/19 08:35 DC Date/Time DO NOT enter until pt leaves facility: 05/14/19 10:18
== END 2019-05-14 10:18 | disposition home or self-care (01) ==
LOC: ED 05:41 → ASU 08:43 → 3N 08:43
DX: K35.80 Unspecified acute appendicitis